=== PATIENT | female | born 1975 | race Caucasian/White ===

== ENCOUNTER 2023-06-19 15:42 | Emergency (ER) | payer MEDICARE, MEDICAID ==
[2023-06-19 16:07] LABS: BASOPHILS ABSOLUTE AUTO 0.01 K/uL (0.00-0.20); BASOPHILS PERCENT AUTO 0.1 % (0.0-1.0); EOSINOPHILS ABSOLUTE AUTO 0.08 K/uL (0.00-0.45); HEMATOCRIT 40.6 % (37.0-47.0); HEMOGLOBIN 13.9 g/dL (12.0-16.0); IMMATURE GRAN ABSOLUTE AUTO 0.04 K/uL (0.00-0.05); IMMATURE GRAN PERCENT AUTO 0.5 % (0.0-0.4); LYMPHOCYTES PERCENT AUTO 18.3 % (24.0-44.0); MEAN CORPUSCULAR HGB CONC 34.2 g/dL (32.0-36.0); MEAN CORPUSCULAR VOLUME 87.5 fL (83.0-99.0); MEAN PLATELET VOLUME 9.4 fL (9.4-12.3); MONOCYTES ABSOLUTE AUTO 0.57 K/uL (0.00-0.80); NEUTROPHILS ABSOLUTE AUTO 5.98 K/uL (1.80-7.70); NEUTROPHILS PERCENT AUTO 73.1 % (41.0-71.0); PLATELET COUNT,PLT 275 K/uL (150-400); RED BLOOD CELL COUNT 4.64 M/uL (4.10-5.30); WHITE BLOOD CELL COUNT,WBC 8.18 K/uL (3.9-11.3)
[2023-06-19] MEDS: Sodium Chloride 0.9% 1,000 ML IV ONE (16:23)
[2023-06-19] MEDS: Sodium Chloride 0.9% 10 ML Syringe FLUSH PRN (16:24)
[2023-06-19] MEDS: Sodium Chloride 0.9% 2.5 ML Syringe FLUSH PRN (16:24)
[2023-06-19 16:33] LABS: LACTIC ACID 2.1 mmol/L (0.4-2.0)
[2023-06-19 16:35] LABS: A/G RATIO 0.9 (0.9-1.6); ACETAMINOPHEN <2.0 ug/mL; ALANINE AMINOTRANSFERASE,ALT 46 IU/L (14-63); ALBUMIN 3.1 g/dL (3.4-5.0); ALKALINE PHOSPHATASE 153 U/L (46-116); ASPARTATE AMNIOTRANSFERASE,AST 55 IU/L (15-37); BILIRUBIN TOTAL 1.6 mg/dL (0.2-1.0); BLOOD UREA NITROGEN,BUN 20 mg/dL (7.0-18.0); CALCIUM 9.2 mg/dL (8.5-10.1); CARBON DIOXIDE,CO2 26.4 mmol/L (21.0-32.0); CHLORIDE,CL 101 mmol/L (98-107); CREATININE 1.1 mg/dL (0.6-1.0); EST CRCL DRUG DOSING (CG) 66.07 mL/min; GLUCOSE RANDOM 118 mg/dL (74-106); POTASSIUM,K 4.3 mmol/L (3.5-5.1); PROTEIN TOTAL,TP 6.7 g/dL (6.4-8.2); SALICYLATE <0.2 mg/dL (0.0-20.0); SODIUM,NA 139 mmol/L (136-145)
[2023-06-19 16:42] LABS: ESTIMATED GFR 62 mL/min (>60)
== END 2023-06-19 18:00 ==
LOC: MW.ED 15:42
DX: S00.12XA Contusion of left eyelid and periocular area, initial encounter (principal); Z75.8 Other problems related to medical facilities and other health care; W19.XXXA Unspecified fall, initial encounter
CPT/HCPCS: 36415; 71045; 72040; 80053; 80143; 80179; 80307; 83605; 84484; 85025; 86850; 86900; 86901; 93005; 96360; 99285; J3490; J7030; 93010